=== PATIENT | male | born 1965 | race Caucasian/White ===

== ENCOUNTER 2017-11-04 11:03 | Outpatient (CLI) | payer OTHER | END 2017-11-04 20:11 | disposition home or self-care (01) | LOC: SMI 11:03 → EEVIPCON 11:03 → SMI 20:11 | PROVIDERS: ATTEND Psychiatry & Neurology Neurology | DX: R41.82 Altered mental status, unspecified (principal); E87.8 Other disorders of electrolyte and fluid balance, not elsewhere classified; Z86.73 Personal history of transient ischemic attack (TIA), and cerebral infarction without residual deficits | CPT/HCPCS: 70544; 70551 ==

== ENCOUNTER 2017-11-05 10:30 | Outpatient (CLI) | payer OTHER | END 2017-11-05 19:55 | disposition home or self-care (01) | LOC: SMI 10:30 | PROVIDERS: ATTEND Psychiatry & Neurology Neurology | DX: I67.1 Cerebral aneurysm, nonruptured (principal); F50.89 Other specified eating disorder | CPT/HCPCS: 70547 ==